=== PATIENT | female | born 1955 | race Caucasian/White ===

== ENCOUNTER 2025-02-01 13:10 | Inpatient (IN) | payer MEDICARE ==
[~2025-02-01] VITALS: Ht 172.7 cm; Wt 66.2 kg
[2025-02-01] MEDS ORDERED: Ipratropium/Albuterol SulF 2.5-0.5MG/3 ML Amp INH ONE (14:20)
[2025-02-01 14:32] LABS: BASOPHILS ABSOLUTE AUTO 0.04 K/mm3 (0.00-0.23); BASOPHILS PERCENT AUTO 0 % (0-2); EOSINOPHILS ABSOLUTE AUTO 0.01 K/mm3 (0.00-0.68); EOSINOPHILS PERCENT AUTO 0 % (0-6); Hematocrit 34.5 % (33.0-51.0); IMMATURE GRAN PERCENT AUTO 1 % (0-1); LYMPHOCYTES ABSOLUTE AUTO 2.06 K/mm3 (0.84-5.20); LYMPHOCYTES PERCENT AUTO 9 % (21-46); MONOCYTES ABSOLUTE AUTO 1.21 K/mm3 (0.16-1.47); MONOCYTES PERCENT AUTO 5 % (4-13); Mean Corpuscular HGB 29.4 pg (26.0-34.0); Mean Corpuscular HGB Conc 34.8 g/dL (31.5-36.5); Mean Corpuscular Volume 85 fL (80-100); NEUTROPHILS ABSOLUTE AUTO 19.69 K/mm3 (1.96-9.15); NEUTROPHILS PERCENT AUTO 85 % (41-73); RDW Coefficient Variation 13.3 % (11.7-14.2); RDW Standard Deviation 41.1 fL (35.1-46.3); Red Blood Cell Count 4.08 M/mm3 (3.80-5.20); White Blood Cell Count 23.21 K/mm3 (4.00-11.30)
[2025-02-01 14:35] LABS: Albumin, Blood 3.9 g/dL (3.4-5.0); Albumin/Globulin Ratio 1.1 (0.8-1.8); Bilirubin, Total 0.7 mg/dL (0.1-1.0); Bun/Creatinine Ratio 34.6 (12.0-20.0); Calcium, Blood 9.1 mg/dL (8.5-10.1); Creatinine, Blood 0.92 mg/dL (0.40-1.00); Globulin, Blood 3.7 g/dL (2.2-4.0); Potassium, Blood 5.5 mmol/L (3.5-5.5); Total Protein, Blood 7.6 g/dL (6.4-8.2)
[2025-02-01 15:05] LABS: Mean Platelet Volume 10.8 fL (9.1-12.4); Platelet Count 308 K/mm3 (150-400)
[2025-02-01] MEDS ORDERED: Aspirin 325 MG Tab PO ONE (16:00)
[2025-02-01] MEDS ORDERED: Dose Adjust by Pharmacy XX STA ×2 (16:29→23:39)
[2025-02-01] MEDS ORDERED: Heparin Sodium 5000 Units/ML 1ML MDV IV ONE (16:30)
[2025-02-01] MEDS ORDERED: Heparin Sodium,Porcine/0.5 NS 500 ML IV SCH (16:30)
[2025-02-01 17:24] LABS: Anti-Xa UFH, PHA Monitoring <0.10 IU/mL; International Normalized Ratio 1.02; Prothrombin Time Results 10.9 Sec (9.7-11.5)
[2025-02-01] MEDS ORDERED: TraZODone HCl 50 MG Tab PO PRN (17:55)
[2025-02-01] MEDS ORDERED: Metoprolol Tartrate 50 MG Tab PO SCH ×2 (19:00→20:00)
[2025-02-01] MEDS ORDERED: Insulin Human Lispro 100 Units/ML 3ML Syringe SC SCH (20:00)
[2025-02-01 20:30] VITALS: BP 101/72
--- NOTE | 2025-02-01 20:30 | NUR ---
ASSUMPTION OF CARE PT ARRIVED TO PCU 5 AT APPROXIMATELY 2029. PT TRANSFERRED INDEPENDENTLY TO HOSPITAL BED. SHE HAS COMPLAINT OF CRISTOBAL, DENIES CP OR PRESSURE. BP STABLE, SPO2 >95% RA. HEPARIN GTT AND NS INFUSING PER EMAR. PT IS RESTING IN BED, CALL LIGHT IN REACH, BREATHING IS EVEN AND UNLABORED.
[2025-02-01] MEDS ORDERED: NS 1,000 ML IV SCH (20:40)
[2025-02-01] MEDS ORDERED: Loperamide HCl 2 MG Cap PO SCH (21:00)
[2025-02-01] MEDS ORDERED: Famotidine 20 MG Tab PO SCH (21:00)
[2025-02-01] MEDS ORDERED: CATAPRES0.1 MG PO (21:49)
[2025-02-01] MEDS ORDERED: LEVSOD100 PO (21:50)
[2025-02-01] MEDS ORDERED: ATOR20 PO (21:51)
[2025-02-01] MEDS ORDERED: LOSA50 PO (21:52)
[2025-02-01] MEDS ORDERED: METF500 PO (21:52)
[2025-02-01] MEDS ORDERED: EZET10 PO (21:53)
[2025-02-01] MEDS ORDERED: PRENATAL TABLE1 EAC2 PO (21:53)
[2025-02-01] MEDS ORDERED: ERGO400 PO (21:53)
[2025-02-01] MEDS ORDERED: ASPI81CH PO (21:54)
[2025-02-01] MEDS ORDERED: FAMO10 PO (21:54)
[2025-02-01] MEDS ORDERED: PROBIOTIC1 EA13 PO (21:55)
[2025-02-01] MEDS ORDERED: Losartan Potassium 50 MG Tab PO SCH (22:00)
[2025-02-02] VITALS (19 sets, daily range): BP systolic 85–125; BP diastolic 56–84
[2025-02-02] MEDS ORDERED: Metoprolol Tartrate 50 MG Tab PO SCH
[2025-02-02] MEDS ORDERED: ALBU90OI INH (00:12)
[2025-02-02] MEDS ORDERED: Albuterol 2.5 MG/3 ML VIAL INH PRN (00:30)
[2025-02-02 03:33] LABS: BASOPHILS ABSOLUTE AUTO 0.06 K/mm3 (0.00-0.23); BASOPHILS PERCENT AUTO 0 % (0-2); EOSINOPHILS ABSOLUTE AUTO 0.09 K/mm3 (0.00-0.68); EOSINOPHILS PERCENT AUTO 0 % (0-6); Hematocrit 33.6 % (33.0-51.0); Hemoglobin 11.5 g/dL (11.5-16.0); IMMATURE GRAN ABSOLUTE AUTO 0.11 K/mm3 (0.00-0.10); IMMATURE GRAN PERCENT AUTO 1 % (0-1); LYMPHOCYTES PERCENT AUTO 14 % (21-46); MONOCYTES ABSOLUTE AUTO 1.78 K/mm3 (0.16-1.47); MONOCYTES PERCENT AUTO 9 % (4-13); Mean Corpuscular HGB 29.3 pg (26.0-34.0); Mean Corpuscular HGB Conc 34.2 g/dL (31.5-36.5); Mean Corpuscular Volume 86 fL (80-100); Mean Platelet Volume 10.8 fL (9.1-12.4); NEUTROPHILS ABSOLUTE AUTO 15.45 K/mm3 (1.96-9.15); NEUTROPHILS PERCENT AUTO 76 % (41-73); Platelet Count 303 K/mm3 (150-400); RDW Coefficient Variation 13.5 % (11.7-14.2); RDW Standard Deviation 42.1 fL (35.1-46.3); Red Blood Cell Count 3.92 M/mm3 (3.80-5.20); White Blood Cell Count 20.29 K/mm3 (4.00-11.30)
[2025-02-02 04:02] LABS: Albumin, Blood 3.5 g/dL (3.4-5.0); Albumin/Globulin Ratio 1.1 (0.8-1.8); Bilirubin, Total 0.5 mg/dL (0.1-1.0); Bun/Creatinine Ratio 47.6 (12.0-20.0); Calcium, Blood 8.7 mg/dL (8.5-10.1); Creatinine, Blood 0.88 mg/dL (0.40-1.00); Globulin, Blood 3.3 g/dL (2.2-4.0); Potassium, Blood 4.2 mmol/L (3.5-5.5); Total Protein, Blood 6.8 g/dL (6.4-8.2)
--- NOTE | 2025-02-02 04:47 | NUR ---
SHIFT SUMMARY PT A&O X4, ABLE TO MAKE NEEDS KNOWN. SHE IS SBA DUE TO HEPARIN GTT. VSS, AFEBRILE. PT HAD TO BE PLACED ON 3-8L O2 TO MAINTAIN SPO2 >94% WHILE ASLEEP. TELE SHOWS SR/ ST 90S-100S. PT DENIES CP. SHE REPORTS SOME SOB, BREATHING TREATMENT ORDERED PER MD. UPPER BASES CTA, LOWER LOBES WITH CRACKLES ON INSPIRATION. NS AND HEPARIN GTT INFUSING PER EMAR. PT IS RESTING IN BED, CALL LIGHT IN REACH, BREATHING IS EVEN AND UNLABORED.
--- NOTE | 2025-02-02 05:45 | NUR ---
UPDATE CONTACTED DR. SPICER REGARDING PT'S COMLAINT OF INCREASING SOB. PT WITH CRACKLES T/O, SPO2 LOW 90'S ON 9L HFNC. BREATHING TREATMENT DONE WITH NO IMPROVEMENT. PER DR. SPICER, CHECK BNP AND REEVALUATE.
[2025-02-02] MEDS ORDERED: Famotidine 20 MG Tab PO SCH (06:00)
[2025-02-02] MEDS ORDERED: Dose Adjust by Pharmacy XX STA (06:55)
[2025-02-02] MEDS ORDERED: Bumetanide 0.25 MG/ML 10ML Vial IV STA (09:00)
--- NOTE | 2025-02-02 09:15 | NUR ---
AM NOTE: PATIENT ALERT AND ORIENTED X4. DENIES NUMBNESS/TINGLING. DENIES PAIN. UP WITH SBA TO HELP MANAGE CORDS AND AIRVO. TELE SHOWING SR/ST WITH HR 90-110'S. SBP 110'S. DENIES CHEST PAIN/PRESSURE/PALPITATIONS. PPP. NO EDEMA NOTED. JOSELYN HOSE IN PLACE. HEPARIN GTT INFUSING PER EMAR. CARDIOLOGY IN THIS AM AND PLAN FOR ANGIOGRAM. 2MG BUMEX IV STAT GIVEN PER DR. SAENZ AND PUREWICK IN PLACE. ECHO COMPLETED THIS AM. ON AIRVO AT 50L AND 67%. COMPLAINS OF SOB AND DRY COUGH. LUNG SOUNDS CLEAR IN BILATERAL UPPER LOBES AND DIMINISHED CRACKLES HEARD IN BILATERAL BASES. BOWEL TONES PRESENT IN ALL FOUR QUADRANTS. DENIES ABDOMINAL PAIN/NAUSEA. NPO FOR ANGIOGRAM. PATIENT STATES SHE HAS HISTORY OF DIARRHEA AND TAKES IMMODIUM PO. SPOKE WITH DR. MARMOLEJO THIS AM AND ORDERS FOR 2MG PO IMMODIUM DAILY TO START TOMORROW. SKIN C/D/I. CALL LIGHT IN REACH. DENIES NEEDS AT THIS TIME. PATIENT UPDATED FAMILY VIA PERSONAL PHONE. AT BEDSIDE.
[2025-02-02] MEDS ORDERED: Heparin Sodium 1000 Units/ML 10ML MDV ONE ×2 (09:58→10:03)
[2025-02-02] MEDS ORDERED: NS 1,000 ML IV ONE ×2 (09:58→10:03)
[2025-02-02] MEDS ORDERED: Atorvastatin 40 MG Tab PO SCH (10:00)
[2025-02-02] MEDS ORDERED: Verapamil HCL 2.5 MG/ML 2ML Injection ONE (10:03)
[2025-02-02] MEDS ORDERED: NS 250 ML IV ONE (10:04)
[2025-02-02] MEDS ORDERED: Nitroglycerin 2 MG/20 ML BTL ONE (10:04)
[2025-02-02] MEDS ORDERED: Midazolam HCl 1MG / ML 2ML Vial ONE (10:06)
[2025-02-02] MEDS ORDERED: FentaNYL Citrate 50 MCG/ML 2 ML Injection ONE (10:07)
[2025-02-02] MEDS ORDERED: Tirofiban HCL Monohydrate 3.75 MG/15 ML Vial ONE (10:08)
--- NOTE | 2025-02-02 10:19 | NUR ---
PATIENT TO HEART CENTER AT THIS TIME. MAINTAINING SATS ON 15L HIGH FLOW NON RE-BREATHER. RESPIRATORY AND BOBBIN DISKER UPDATED. PHARMACY CALLED TO NOTIFY HEPARIN STOPPED AT 1015. AT BEDSIDE.
[2025-02-02] MEDS ORDERED: Morphine Sulfate 4 MG/1 ML Injection ONE (10:45)
[2025-02-02] MEDS ORDERED: Insulin Human Lispro 100 Units/ML 3ML Syringe SC SCH (11:33)
[2025-02-02] MEDS ORDERED: Empagliflozin 10 MG TAB PO SCH (12:00)
[2025-02-02] MEDS ORDERED: Torsemide 20 MG TAB PO SCH (12:00)
[2025-02-02] MEDS ORDERED: Spironolactone 25 MG Tab PO SCH (12:00)
--- NOTE | 2025-02-02 13:00 | NUR ---
PATIENT BACK FROM [facility] AT 1120. POST VITALS IN PROGRESS AND STABLE. RIGHT RADIAL SITE SOFT AND NONTENDER. TR BAND AND ARM BOARD IN PLACE. RADIAL PRECAUTIONS REVIEWED WITH PATIENT AND PATIENT VERBALIZES TEACHING. TITRATED DOWN TO 5L HIGH FLOW NASAL CANNULA. STRICT I/O. PATIENT EDUCATED ON MEASURING I/O. FAMILY AT BEDSIDE AND UPDATED ON PLAN OF CARE. DR. SAENZ TO BEDSIDE. CALL LIGHT IN REACH. PATIENT EATING LUNCH AT THIS TIME.
[2025-02-02 15:18] LABS: Magnesium, Blood 1.9 mg/dL (1.6-2.4); Potassium, Blood 3.7 mmol/L (3.5-5.5)
--- NOTE | 2025-02-02 17:44 | NUR ---
SHIFT SUMMARY: PATIENT REMAINS ALERT AND ORIENTED. TELE SHOWING SR/ST WITH HR 90-100'S. SBP 90-110'S. DENIES CHEST PAIN/PRESSURE/PALPITATIONS. RIGHT RADIAL SITE SOFT AND NONTENDER. TR BAND REMOVED AND ARM BOARD IN PLACE. ON 5L HIGH FLOW NASAL CANNULA. PATIENT STATES HER BREATHING HAS IMPROVED AND SHE FEELS "MUCH BETTER". TOLERATING PO DIET. STRICT INTAKE AND OUTPUT. REMAINS AT BEDSIDE. ACHS BLOOD SUGARS. DENIES NEEDS AT THIS TIME. CALL LIGHT IN REACH.
[2025-02-02] MEDS ORDERED: Mag Sulfate 1 GM/D5% 100ML 100 ML IV STA (17:46)
[2025-02-02] MEDS ORDERED: Losartan Potassium 25 MG Tab PO SCH ×2 (18:00)
[2025-02-02] MEDS ORDERED: Potassium Chloride 20 MEQ TabCR PO ONE (18:00)
[2025-02-02] MEDS ORDERED: Losartan Potassium 50 MG Tab PO SCH (18:00)
[2025-02-03 03:13] VITALS: BP 123/73
[2025-02-03 05:06] LABS: Bun/Creatinine Ratio 41.7 (12.0-20.0); Calcium, Blood 8.6 mg/dL (8.5-10.1); Creatinine, Blood 1.03 mg/dL (0.40-1.00); Magnesium, Blood 2.3 mg/dL (1.6-2.4); Potassium, Blood 3.2 mmol/L (3.5-5.5)
--- NOTE | 2025-02-03 05:22 | NUR ---
SHIFT SUMMARY NO ACUTE CHANGES THIS SHIFT. PT A&O X4, ABLE TO MAKE NEEDS KNOWN. VSS, AFEBRILE. SPO2 >93% ON 2L NC. TELE SHOWS SR/ ST 90S-100S. PT DENIES CP AND SOB. R RADIAL SITE IS SOFT, NONTENDER AND WITHOUT BRUISING OR HEMATOMA. PT IS RESTING IN BED, CALL LIGHT IN REACH, BREATHING IS EVEN AND UNLABORED.
[2025-02-03] MEDS ORDERED: Potassium Chloride 20 MEQ TabCR PO ONE (06:10)
[2025-02-03 07:27] VITALS: BP 112/73
--- NOTE | 2025-02-03 08:51 | NUR ---
AM NOTE: PATIENT ALERT AND ORIENTED X4. DENIES PAINS. UP WITH SBA TO HELP MANAGE CORDS. TELE SHOWING SR/ST WITH HR 90-100'S. DENIES CHEST PAIN/PRESSURE/PALPITATIONS. SBP 110'S. RIGHT RADIAL SITE SOFT AND NONTENDER. DRESSING C/D/I. ARM BOARD IN PLACE. RADIAL PRECAUTIONS REVIEWED WITH PATIENT. DR. SAENZ TO BEDSIDE THIS AM AND THIS RN PRESENT. ORDERS FOR 02/04 CHEM 8 PANEL AND MAG WITH [address]. PATIENT ON 2L NASAL CANNULA SATING MID 90'S. LUNGS SOUNDS CLEAR WITH DIMINISHED CRACKLES IN BILATERAL BASES. TOLERATING PO DIET. DENIES ABDOMINAL PAIN/NAUSEA. STRICT INTAKE AND OUTPUT, REVIEWED WITH PATIENT. DR. MARMOLEJO TO BEDSIDE THIS AM AND THIS RN PRESENT. NO NEW ORDERS FOR THIS RN TO PLACE. PATIENT SITTING IN BED AT THIS TIME, DENIES NEEDS, CALL LIGHT IN REACH.
[2025-02-03] MEDS ORDERED: Aspirin 81 MG Chew PO SCH (09:00)
[2025-02-03] MEDS ORDERED: Enoxaparin 40 MG/0.4 ML SYR SC SCH (09:00)
[2025-02-03] MEDS ORDERED: Metoprolol Succinate 25 MG TABCR PO SCH ×2 (09:00)
[2025-02-03] MEDS ORDERED: Loperamide HCl 2 MG Cap PO SCH (09:00)
[2025-02-03 11:21] VITALS: BP 112/60
[2025-02-03 16:51] VITALS: BP 122/69
[2025-02-03 18:20] VITALS: BP 128/74
--- NOTE | 2025-02-03 18:30 | NUR ---
SHIFT SUMMARY: NO ACUTE CHANGES, SEE PREVIOUS NOTE. PATIENT REMAINS ALERT AND ORIENTED. VITAL SIGNS STABLE. TELE SHOWING SR WITH HR 90-100'S. STABLE BLOOD PRESSURE. RIGHT RADIAL REMAINS C/D/I. TITRATED TO ROOM AIR SATING MID 90'S. TOLERATING PO DIET. STRICT INTAKE AND OUTPUT. AT BEDSIDE AND UPDATED ON PLAN OF CARE. CALL LIGHT IN REACH. DENIES NEEDS AT THIS TIME.
[2025-02-03 21:40] VITALS: BP 117/77
--- NOTE | 2025-02-03 22:47 | NUR ---
PT ARRIVED VIA W/C FROM PCU WITH TELE. A&O X4, VVS WNL, INDEPENDENT WITH MOBILITY. DENIES PAIN. USES CALL SYSTEM APPROPRIATELY. PLAN TO D/C ON 02/04
[2025-02-04 00:08] VITALS: BP 119/72
[2025-02-04 03:15] VITALS: BP 124/84
[2025-02-04 06:27] LABS: Bun/Creatinine Ratio 34.1 (12.0-20.0); Calcium, Blood 8.4 mg/dL (8.5-10.1); Creatinine, Blood 0.88 mg/dL (0.40-1.00); Potassium, Blood 3.6 mmol/L (3.5-5.5)
[2025-02-04] MEDS ORDERED: Potassium Chloride 20 MEQ TabCR PO ONE (07:00)
[2025-02-04 07:40] VITALS: BP 114/78
[2025-02-04] MEDS ORDERED: Torsemide 10 MG TAB PO SCH (09:00)
[2025-02-04] MEDS ORDERED: Metoprolol Succinate 50 MG TABCR PO SCH (09:00)
[2025-02-04] MEDS ORDERED: METO50ER PO (11:28)
[2025-02-04] MEDS ORDERED: JARDIANCE10 MG PO (11:28)
[2025-02-04] MEDS ORDERED: SPIR25 PO (11:29)
[2025-02-04] MEDS ORDERED: TORSE20 PO (11:29)
--- NOTE | 2025-02-04 13:12 | NUR ---
DC SUMMARY PT DC THIS SHIFT. DC INSTRUCTION GONE OVER WITH PT AND PT FAMILY. PT AND PT FAMILY STATED UNDERSTANDING TO DC INSTRUCTION. PT WAS ESCORTED TO PRIVATE VEHICLE VIA WHEELCHAIR BY THIS NURSE.
[2025-02-06 17:04] LABS: METANEPHRINE 0.33 nmol/L (0.00-0.49); NORMETANEPHRINE 1.46 nmol/L (0.00-0.89)
== END 2025-02-04 12:10 | disposition home or self-care (01) | DRG 280 ==
LOC: ER 13:10 → PCU 17:49 → MEDS 17:49 → PCU 20:28 → MEDS 02-03 22:50
PROVIDERS: Internal Medicine Cardiovascular Disease; Student in an Organized Health Care Education/Training Program; ADMIT Internal Medicine Endocrinology, Diabetes & Metabolism
PROC: B2111ZZ Fluoroscopy of Multiple Coronary Arteries using Low Osmolar Contrast (ICD-10-PCS; principal; 2025-02-02)
PROC: 4A023N7 Measurement of Cardiac Sampling and Pressure, Left Heart, Percutaneous Approach (ICD-10-PCS; 2025-02-02)
DX: I21.4 Non-ST elevation (NSTEMI) myocardial infarction (principal); I50.21 Acute systolic (congestive) heart failure; E87.1 Hypo-osmolality and hyponatremia; I45.10 Unspecified right bundle-branch block; K21.9 Gastro-esophageal reflux disease without esophagitis; E78.2 Mixed hyperlipidemia; E11.65 Type 2 diabetes mellitus with hyperglycemia; K52.839 Microscopic colitis, unspecified; J30.2 Other seasonal allergic rhinitis; J44.9 Chronic obstructive pulmonary disease, unspecified; I11.0 Hypertensive heart disease with heart failure; E06.3 Autoimmune thyroiditis; E87.6 Hypokalemia; K57.30 Diverticulosis of large intestine without perforation or abscess without bleeding; Z88.8 Allergy status to other drugs, medicaments and biological substances; Z91.013 Allergy to seafood; Z88.1 Allergy status to other antibiotic agents; Z88.5 Allergy status to narcotic agent; Z85.3 Personal history of malignant neoplasm of breast; Z87.19 Personal history of other diseases of the digestive system; Z92.3 Personal history of irradiation; Z92.21 Personal history of antineoplastic chemotherapy; Z98.890 Other specified postprocedural states; Z90.89 Acquired absence of other organs; Z87.891 Personal history of nicotine dependence
CPT/HCPCS: 36415; 71046; 71260; 76937; 80048; 80053; 82947; 83735; 83835; 83880; 84132; 84484; 85025; 85379; 85520; 85610; 85730; 93005; 93010; 93458; 94640; 94664; 94762; 96374-59; 99152; 99285-25; A9270; C1769; C1887; C1894; C8929; J1644; J1650; J2250; J2270; J3010; J3246; J3475; J7030; J7050; Q9957; Q9967